=== PATIENT | male | born 1980 | race Hispanic/Latino ===

== ENCOUNTER 2022-11-19 14:08 | Emergency (ER) | payer OTHER ==
[2022-11-19] MEDS ORDERED: Lidocaine 1% (PF) 30 ML VIAL ONE (14:53)
[2022-11-19] MEDS ORDERED: Bacitracin 1 PK ONE (16:40)
[2022-11-19] MEDS ORDERED: CEFAZOLIN 1 GM VIAL ONE (16:40)
[2022-11-19] MEDS ORDERED: Sterile Water 10 ML ONE (16:41)
== END 2022-11-19 17:05 | disposition home or self-care (01) ==
LOC: MADERS 14:08
DX: S61.011A Laceration without foreign body of right thumb without damage to nail, initial encounter (principal); W31.2XXA Contact with powered woodworking and forming machines, initial encounter
CPT/HCPCS: 12002; 96372; J0690; J2001